=== PATIENT | female | born 1990 | race Caucasian/White ===

== ENCOUNTER 2018-05-29 11:43 | Day surgery (SDC) | payer OTHER ==
[2018-05-29] MEDS ORDERED: MIDAZOLAM 1 MG/ML 2 ML INJ (12:38)
[2018-05-29] MEDS ORDERED: METOCLOPRAMIDE 10 MG INJ (12:38)
[2018-05-29] MEDS ORDERED: PROPOFOL 20 ML (12:45)
[2018-05-29] MEDS ORDERED: GLYCOPYRROLATE 0.4 MG INJ (12:47)
[2018-05-29] MEDS ORDERED: NEOSTIGMINE 3 MG/3 ML SYRINGE (12:47)
[2018-05-29] MEDS ORDERED: DEXAMETHASONE 4 MG/ML 1 ML INJ (12:47)
[2018-05-29] MEDS ORDERED: ROCURONIUM 50 MG INJ (12:47)
[2018-05-29] MEDS ORDERED: HYDROmorphONE 1 MG/5 ML IV SYRINGE IV ×2 (13:00)
[2018-05-29] MEDS ORDERED: ONDANSETRON 4 MG INJ IV (13:00)
[2018-05-29] MEDS: HYDROmorphONE 1 MG/5 ML IV SYRINGE IV (13:35)
== END 2018-05-29 15:13 | disposition home or self-care (01) ==
LOC: SDS 11:43
DX: J35.01 Chronic tonsillitis (principal)
CPT/HCPCS: 42821; 88304